=== PATIENT | female | born 1950 | race African-American/Black ===

== ENCOUNTER 2024-10-23 04:36 | Emergency (ER) | payer BC, MEDICAID ==
[~2024-10-23] VITALS: Ht 167.6 cm; Wt 74.0 kg
[~2024-10-23 04:36] MED LIST: KEPP500 PO; LEVE1000 MT
[2024-10-23 04:38] VITALS: O2SAT 99
[2024-10-23 05:20] LABS: BASOPHILS % 1.2 % (0.0-2.0); HEMATOCRIT. 34.7 % (36.0-48.0); HEMOGLOBIN. 11.8 g/dL (12.0-16.0); LYMPHOCYTES % 29.4 % (20.0-50.0); MEAN CORPUSCULAR HEMOGLOBIN 31.1 pg (28.0-32.0); MEAN CORPUSCULAR HGB CONC 34.2 g/dL (31.0-37.0); MONOCYTES % 6.9 % (2.0-8.0); NEUTROPHILS % 57.5 % (40.0-76.0); PLATELET 288 x1000/uL (130-400); RED BLOOD CELL COUNT 3.81 mill/uL (4.2-5.4); RED CELL DISTRIBUTION WIDTH 13.1 % (11.6-14.6); WHITE BLOOD COUNT 7.1 x1000/uL (4.5-11.0)
[2024-10-23 05:36] LABS: CHLORIDE 110 mEq/L (98-107); POTASSIUM 4.2 mEq/L (3.5-5.1); SODIUM 140 mEq/L (136-145)
[2024-10-23 05:37] LABS: CALCIUM 9.5 mg/dL (8.7-10.4); CARBON DIOXIDE 27 mEq/L (21-32)
[2024-10-23 05:42] LABS: CREATININE 0.7 mg/dL (0.6-1.0); ETHANOL BLOOD < 10 mg/dL (<10); GLUCOSE 102 mg/dL (70-105); UREA NITROGEN BLOOD 15 mg/dL (9-23)
[2024-10-23] MEDS: LEVETIRACETAM 500MG PREMIX 100 ML IV ONE (05:58)
[2024-10-23 06:18] LABS: CLARITY URINE CLEAR (CLEAR); COLOR URINE YELLOW (YELLOW); GLUCOSE URINE NEGATIVE (NEGATIVE); PH URINE 6.5 (4.5-8.0); PROTEIN URINE NEGATIVE (NEGATIVE)
[2024-10-23 06:19] LABS: KETONES URINE NEGATIVE (NEGATIVE); NITRITE URINE NEGATIVE (NEGATIVE); OCCULT BLOOD URINE 2+ (NEGATIVE); UROBILINOGEN URINE 0.2 E.U./dL (0.2-1.0)
[2024-10-23 06:20] LABS: LEUKOCYTE ESTERASE URINE 1+ (NEGATIVE)
[2024-10-23 06:26] LABS: *AMPHETAMINES SCREEN URINE NEGATIVE (NEGATIVE); *BARBITURATES SCREEN URINE NEGATIVE (NEGATIVE); *BENZODIAZEPINES SCREEN URINE NEGATIVE (NEGATIVE); *COCAINE SCREEN URINE NEGATIVE (NEGATIVE); CANNABINOID URINE SCREEN PRESUMPTIVE POSITIVE (NEGATIVE); ECSTASY MDMA SCREEN URINE NEGATIVE (NEGATIVE); METHADONE URINE SCREEN NEGATIVE (NEGATIVE); OPIATES URINE SCREEN PRESUMPTIVE POSITIVE (NEGATIVE); PHENCYCLIDINE URINE SCREEN NEGATIVE (NEGATIVE)
[2024-10-23 06:39] LABS: SQUAMOUS EPITHELIAL CELL URINE FEW /lpf (RARE/1+)
[2024-10-23 06:42] LABS: BACTERIA URINE NONE SEEN
[2024-10-23] MEDS ORDERED: CEFTRIAXONE 1GM/50ML 50 ML IV ONE (07:15)
[2024-10-23] MEDS ORDERED: CEPH500C2 MT (08:28)
[2024-10-23 08:36] VITALS: BP 141/58; PULSE 91; RESP 19; TEMP 36.9; O2SAT 99
[2024-10-23] MEDS: CEFTRIAXONE 1GM/50ML 50 ML IV NR (08:55)
== END 2024-10-23 10:24 | disposition home or self-care (01) ==
LOC: ER 04:57
DX: R56.9 Unspecified convulsions (principal); N39.0 Urinary tract infection, site not specified; E11.9 Type 2 diabetes mellitus without complications; I10 Essential (primary) hypertension; F12.90 Cannabis use, unspecified, uncomplicated; Z79.899 Other long term (current) drug therapy
CPT/HCPCS: 80305; 80048; 81003; 80320; 82962; 85025; 36415; 93005; 96367; 96365; 96366; 99284; J1953; J0696; G0480

== ENCOUNTER 2025-09-05 04:58 | Emergency (ER) | payer BC, MEDICAID ==
[~2025-09-05] VITALS: Ht 160 cm; Wt 64.0 kg
[~2025-09-05 04:58] MED LIST changes: +CEPH500C2 MT
[2025-09-05 05:00] VITALS: O2SAT 100
[2025-09-05] MEDS: LEVETIRACETAM 500MG PREMIX 100 ML IV ONE (05:38)
[2025-09-05 06:00] LABS: BASOPHILS % 1.0 % (0.0-2.0); EOSINOPHILS % 2.6 % (0.0-5.0); HEMATOCRIT. 34.6 % (36.0-48.0); HEMOGLOBIN. 11.3 g/dL (12.0-16.0); LYMPHOCYTES % 19.8 % (20.0-50.0); MEAN PLATELET VOLUME 7.7 fl (7.4-10.4); MONOCYTES % 7.0 % (2.0-8.0); NEUTROPHILS % 69.6 % (40.0-76.0); PLATELET 286 x1000/uL (130-400); RED BLOOD CELL COUNT 3.86 mill/uL (4.2-5.4); RED CELL DISTRIBUTION WIDTH 13.5 % (11.6-14.6)
[2025-09-05 06:22] LABS: CREATININE 0.8 mg/dL (0.6-1.0)
[2025-09-05 06:23] LABS: ETHANOL BLOOD < 10 mg/dL (<10); PROTEIN TOTAL 7.1 g/dL (6.0-8.3); TROPONIN I HIGH SENSITIVITY 4 ng/L (3.0-34); UREA NITROGEN BLOOD 8 mg/dL (9-23)
[2025-09-05 06:24] LABS: ASPARTATE AMINOTRANSFERASE 17 IU/L (<34)
[2025-09-05 06:25] LABS: BILIRUBIN DIRECT < 0.1 mg/dL (<=3.0); BILIRUBIN TOTAL 0.2 mg/dL (0.1-1.0)
[2025-09-05 07:07] VITALS: TEMP 36.9
[2025-09-05 08:15] LABS: CLARITY URINE CLEAR (CLEAR); COLOR URINE YELLOW (YELLOW); GLUCOSE URINE NEGATIVE (NEGATIVE); KETONES URINE NEGATIVE (NEGATIVE); LEUKOCYTE ESTERASE URINE TRACE (NEGATIVE); NITRITE URINE NEGATIVE (NEGATIVE); OCCULT BLOOD URINE 2+ (NEGATIVE); PH URINE 6.5 (4.5-8.0); PROTEIN URINE NEGATIVE (NEGATIVE); SPECIFIC GRAVITY URINE 1.006 (1.005-1.030); UROBILINOGEN URINE 0.2 E.U./dL (0.2-1.0)
[2025-09-05 08:39] LABS: SQUAMOUS EPITHELIAL CELL URINE FEW /lpf (RARE/1+)
[2025-09-05 08:43] LABS: BACTERIA URINE NONE SEEN; WBC URINE 0-2 /hpf (0-2)
[2025-09-05 08:46] LABS: *AMPHETAMINES SCREEN URINE NEGATIVE (NEGATIVE); *BARBITURATES SCREEN URINE NEGATIVE (NEGATIVE); *BENZODIAZEPINES SCREEN URINE NEGATIVE (NEGATIVE); *COCAINE SCREEN URINE NEGATIVE (NEGATIVE); CANNABINOID URINE SCREEN PRESUMPTIVE POSITIVE (NEGATIVE); ECSTASY MDMA SCREEN URINE NEGATIVE (NEGATIVE); METHADONE URINE SCREEN NEGATIVE (NEGATIVE); OPIATES URINE SCREEN NEGATIVE (NEGATIVE); PHENCYCLIDINE URINE SCREEN NEGATIVE (NEGATIVE)
[2025-09-05 08:55] VITALS: BP 143/69; PULSE 84; RESP 22; O2SAT 100
== END 2025-09-05 09:37 | disposition home or self-care (01) ==
LOC: ER 05:22 → CANBEDREQ 09:14 → ER 09:37
DX: G40.909 Epilepsy, unspecified, not intractable, without status epilepticus (principal); E11.9 Type 2 diabetes mellitus without complications; R06.02 Shortness of breath; I67.82 Cerebral ischemia; Z79.899 Other long term (current) drug therapy
CPT/HCPCS: 80076; 80305; 80048; 81003; 80320; 83880; 85025; 84484; 36415; 71045; 70450; 93005; 96365; 99285; J1953; A4606; G0480